=== PATIENT | female | born 1940 | race Caucasian/White ===

== ENCOUNTER 2023-03-17 12:16 | Emergency (ER) | payer BC ==
[~2023-03-17] VITALS: Ht 162.6 cm; Wt 77.1 kg
--- NOTE | 2023-03-17 12:20 | NUR ---
BIBS FOR PALPITATIONS. PATIENT ALSO WENT TO HOSPITAL YESTERDAY FOR PALPITATIONS BUT HEART RHYTHM BECAME NORMAL AT THAT TIME AND FACILITY WAS NOT ABLE TO DETECT ANY ARRYTHMIA. A/O X 3, ABLE TO MAKE NEEDS KNOWN.
--- NOTE | 2023-03-17 12:47 | NUR ---
BLOOD SAMPLES OBTAINED
[2023-03-17 13:02] LABS: BASOPHILS % (AUTO) 0.7 % (0.0-2.0); EOSINOPHILS % (AUTO) 1.4 % (0.0-6.0); HEMATOCRIT 40 % (33-45); HEMOGLOBIN 13.2 g/dL (11.5-14.8); LYMPHOCYTES # (AUTO) 1.4 K/uL (0.8-4.8); MEAN CORPUSCULAR HGB CONC 33 g/dl (31.0-36.0); MEAN CORPUSCULAR VOLUME 92 fL (82-100); MONOCYTES # (AUTO) 0.7 K/uL (0.1-1.30); MONOCYTES % (AUTO) 9.7 % (2.0-12.0); NEUTROPHILS # (AUTO) 5.3 K/uL (1.8-8.9); NEUTROPHILS % (AUTO) 70.2 % (43.0-81.0); PLATELET COUNT (AUTO) 220 K/uL (150-450); RED BLOOD CELL COUNT(AUTO) 4.31 MIL/uL (4.0-5.2); WHITE BLOOD COUNT (AUTO) 7.5 K/uL (4.3-11.0)
[2023-03-17 13:16] LABS: CARBON DIOXIDE 29 mmol/L (21-32); CHLORIDE 103 mmol/L (98-107); CREATININE 0.7 mg/dL (0.6-1.3); GLUCOSE 155 mg/dL (74-106); POTASSIUM 3.5 mmol/L (3.5-5.1); SODIUM SERUM 139 mmol/L (136-145); UREA NITROGEN, BLOOD 20 mg/dL (7-18)
[2023-03-17 13:28] LABS: MAGNESIUM 2.1 mg/dL (1.8-2.4); PHOSPHORUS 3.2 mg/dL (2.5-4.9)
[2023-03-17 13:46] LABS: THYROID STIMULATING HORMONE 1.714 uIU/mL (0.358-3.74)
--- NOTE | 2023-03-17 14:28 | NUR ---
Patient discharged to home in stable condition. Written and verbal after care instructions given. Patient verbalizes understanding of instruction.IV removed. Catheter intact and site benign. Pressure and 4x4 applied to site. No bleeding noted.
[2023-03-17 14:30] VITALS: BP 130/78
== END 2023-03-17 14:30 | disposition home or self-care (01) ==
LOC: ER 12:18
DX: I49.1 Atrial premature depolarization (principal); R00.2 Palpitations; Z88.2 Allergy status to sulfonamides
CPT/HCPCS: 36415; 71045-TC; 80048-TC; 83735-TC; 84100-TC; 84443-TC; 84484-TC; 85025-TC